=== PATIENT | male | born 1960 | race Two or more races ===

== ENCOUNTER 2017-03-22 12:39 | Emergency (ER) | payer OTHER ==
--- NOTE | 2017-03-22 12:52 | ER Document Report ---
ED Seizure - General Mode of Arrival: Ambulatory Information source: Patient - HPI Patient complains to provider of: History of seizures <PASCALE DOMINGUEZ - Last Filed: 03/22/17 13:52> <ZACARIAS SHIPMAN - Last Filed: 03/22/17 16:07> - General Stated Complaint: POSSIBLE SEIZURE Time Seen by Provider: 03/22/17 12:45 Notes: Patient is a 57-year-old male who presents to the emergency department today with complaints of seizures. According to EMS, the daughter called them secondary to seizure-like activity just prior to arrival. The daughter is now an adult and has not seen her father since she was 17 years old. EMS reports that the father rode a bus here from [place] because he was going to buy his daughter a car. EMS states that the patient was sucking his cheek, tearful, and not answering. Patient is on Depakote so it appears he has a history of seizures. (PASCALE DOMINGUEZ) Past Medical History - General Information source: Patient - Social History Smoking Status: Current Every Day Smoker Cigarette use (# per day): Yes Frequency of alcohol use: Occasional Drug Abuse: Marijuana Lives with: Family Family History: Reviewed & Not Pertinent Pulmonary Medical History: Reports: Hx COPD Neurological Medical History: Reports: Hx Seizures GI Medical History: Reports: Hx Gastroesophageal Reflux Disease Psychiatric Medical History: Reports: Hx Anxiety Traumatic Medical History: Reports: Hx Traumatic Brain Injury Surgical Hx: Negative <PASCALE DOMINGUEZ - Last Filed: 03/22/17 13:52> Review of Systems - Review of Systems Constitutional: No symptoms reported EENT: No symptoms reported Cardiovascular: No symptoms reported Respiratory: No symptoms reported Gastrointestinal: No symptoms reported Genitourinary: No symptoms reported Male Genitourinary: No symptoms reported Musculoskeletal: No symptoms reported Skin: No symptoms reported Hematologic/Lymphatic: No symptoms reported Neurological/Psychological: See HPI, Seizure -: Yes All other systems reviewed and negative <PASCALE DOMINGUEZ - Last Filed: 03/22/17 13:52> <ZACARIAS SHIPMAN - Last Filed: 03/22/17 16:07> - Review of Systems Notes: given by EMS (PASCALE DOMINGUEZ) Physical Exam <PASCALE DOMINGUEZ - Last Filed: 03/22/17 13:52> <ZACARIAS SHIPMAN - Last Filed: 03/22/17 16:07> - Notes Notes: Physical Exam: General: Alert, appears well. HEENT: Normocephalic. Atraumatic. PERRL. Extraocular movements intact. Oropharynx clear. Neck: Supple. Non-tender. Respiratory: No respiratory distress. Clear and equal breath sounds bilaterally. Cardiovascular: Regular rate and rhythm. Abdominal: Normal Inspection. Non-tender. No distension. Normal Bowel Sounds. Back: Non-tender. No deformity or step off. Extremities: Moves all four extremities. Upper extremities: Normal inspection. Normal ROM. Lower extremities: Normal inspection. No edema. Normal ROM. Neurological: Head bobbing to the right, left foot shaking, hyper reflexive, no clonus at the ankles. Patient mumbles words that appear to be in a foreign language every few minutes. Psychological: Normal affect. Normal Mood. Skin: Warm. Dry. Normal color. (PASCALE DOMINGUEZ) Course - Laboratory Result Diagrams: 03/22/17 12:50 03/22/17 12:50 <PASCALE DOMINGUEZ - Last Filed: 03/22/17 13:52> - Laboratory Result Diagrams: 03/22/17 12:50 03/22/17 12:50 <ZACARIAS SHIPMAN - Last Filed: 03/22/17 16:07> - Re-evaluation Re-evalutation: 03/22/17 15:41 The patient's Depakote level was undetectable. He did have his medication bottles full of medicines. It would appear that he is not taking his medicine. 03/22/17 15:47 Patient now is awake alert and oriented. He does not contest the undetectable Depakote level. (ZACARIAS SHIPMAN) - Laboratory Laboratory results interpreted by me: 03/22/17 12:50 Total Bilirubin 1.5 H Acetaminophen < 10 L Valproic Acid < 10.0 L Discharge <PASCALE DOMINGUEZ - Last Filed: 03/22/17 13:52> <ZACARIAS SHIPMAN - Last Filed: 03/22/17 16:07> - Discharge Clinical Impression: Seizure disorder, Noncompliance with medications Condition: Stable Disposition: HOME, SELF-CARE Additional Instructions: Seizure, Known Epileptic You have had a seizure. Seizures may "break through" in an epileptic due to stress of infection or injury, a change in blood chemistry, or drug and alcohol use. Another common cause is failure to take medication as prescribed. Your doctor has evaluated your situation for the likely cause of this seizure. It is important that you follow his advice concerning any medication changes and follow-up care. Further testing of anti-seizure medication levels in your blood may be necessary. If you have a [place] driver's license, it's important that you DO NOT DRIVE until given permission by your physician. This seizure must be reported to the [place] driver 's license bureau. Call the doctor or return if seizures recur, or if new or unusual symptoms arise -- such as severe headache, confusion, excessive sleepiness, local weakness or numbness, neck stiffness, or fever. YOUR DEPAKOTE LEVEL WAS TOO LOW TO DETECT--YOU HAVE NOT BEEN TAKING YOUR MEDICATION. BE SURE YOU TAKE YOUR MEDICATIONS. RETURN TO THE EMERGENCY ROOM IF ANY NEW OR WORSENING SYMPTOMS. Scribe Attestation: 03/22/17 15:50 I personally performed the services described in the documentation, reviewed and edited the documentation which was dictated to the scribe in my presence, and it accurately records my words and actions. (ZACARIAS SHIPMAN) Scribe Documentation - Scribe Written by Jan:: Jan Flores, 03/22/2017 1401 acting as scribe for :: Nicola <PASCALE DOMINGUEZ - Last Filed: 03/22/17 13:52>
[2017-03-22 13:37] LABS: ALANINE AMINOTRANSFERASE 32 U/L (21-72); ALBUMIN 4.1 g/dL (3.5-5.0); ALKALINE PHOSPHATASE 85 U/L (38-126); ANION GAP 11 (5-19); ASPARTATE AMINO TRANSFERASE 18 U/L (17-59); BILIRUBIN,DIRECT 0.2 mg/dL (0.0-0.4); BILIRUBIN,TOTAL 1.5 mg/dL (0.2-1.3); BLOOD UREA NITROGEN 8 mg/dL (7-20); CALCIUM 9.4 mg/dL (8.4-10.2); CARBON DIOXIDE 23 mmol/L (22-30); CHLORIDE 107 mmol/L (98-107); CREATININE RESULT 0.78 mg/dL (0.52-1.25); GLUCOSE 107 mg/dL (75-110); POTASSIUM 4.1 mmol/L (3.6-5.0); TOTAL PROTEIN 6.9 g/dL (6.3-8.2)
[2017-03-22 13:38] LABS: ABSOLUTE EOSINOPHILS # (AUTO) 0.1 10^3/uL (0.0-0.6); ABSOLUTE LYMPHOCYTES (AUTO) 1.2 10^3/uL (0.5-4.7); ABSOLUTE MONOCYTES (AUTO) 0.5 10^3/uL (0.1-1.4); ABSOLUTE NEUT (AUTO) 3.4 10^3/uL (1.7-8.2); BASOPHILS % (AUTO) 0.9 % (0-2); EOSINOPHILS % (AUTO) 1.5 % (0-6); HEMATOCRIT 46.9 % (37.9-51.0); HEMOGLOBIN 15.5 g/dL (13.5-17.0); HGB HCT DIFFERENCE -0.4; LYMPHOCYTES % (AUTO) 23.8 % (13-45); MEAN CORPUSCULAR HEMOGLOBIN 29.6 pg (27.0-33.4); MEAN CORPUSCULAR HGB CONC 33.1 g/dL (32.0-36.0); MEAN CORPUSCULAR VOLUME 90 fl (80-97); MONOCYTES % (AUTO) 8.7 % (3-13); RED BLOOD COUNT 5.23 10^6/uL (4.35-5.55); SEGMENTED NEUTROPHILS % (AUTO) 65.1 % (42-78); WHITE BLOOD COUNT 5.2 10^3/uL (4.0-10.5)
[2017-03-22] MEDS ORDERED: AMMONIA INHALANTS 10 AMPUL/BOX IH ONE (13:43)
[2017-03-22 13:44] LABS: ALCOHOL < 10 mg/dL (NONE DETECTED)
[2017-03-22 14:12] LABS: VALPROIC ACID < 10.0 ug/mL (50.0-120.0)
[2017-03-22] MEDS ORDERED: VALPROATE SODIUM INJ/PF 500 MG/5 ML SDV IV ONE (14:24)
[2017-03-22 16:58] VITALS: BP 115/88
== END 2017-03-22 16:58 | disposition home or self-care (01) ==
LOC: ER 12:39
DX: G40.909 Epilepsy, unspecified, not intractable, without status epilepticus (principal); T42.6X6A Underdosing of other antiepileptic and sedative-hypnotic drugs, initial encounter; Z91.14 Patient's other noncompliance with medication regimen; F17.210 Nicotine dependence, cigarettes, uncomplicated; J44.9 Chronic obstructive pulmonary disease, unspecified
CPT/HCPCS: 99284; 96374; 36415; 80307 ×2; 83735; 85025; 80053; 80164; J3490 ×2